=== PATIENT | female | born 1955 | race Caucasian/White ===

== ENCOUNTER 2020-11-28 10:36 | Emergency (ER) | payer OTHER ==
[~2020-11-28] VITALS: Ht 154.9 cm; Wt 79.4 kg
[2020-11-28] MEDS ORDERED: ACTOS15 MG PO (10:59)
[2020-11-28] MEDS ORDERED: CEPHALEXIN500 MG PO (12:09)
[2020-11-28] MEDS ORDERED: CENTANY30 GM TOP (12:09)
[2020-11-28] MEDS ORDERED: BACTRIM DS TAB1 EACH PO (12:09)
[2020-11-28 12:15] VITALS: BP 135/54
== END 2020-11-28 12:16 | disposition home or self-care (01) ==
LOC: M.ERS 10:36
DX: S91.332A Puncture wound without foreign body, left foot, initial encounter (principal); M79.672 Pain in left foot; E11.9 Type 2 diabetes mellitus without complications; E78.00 Pure hypercholesterolemia, unspecified; Z79.899 Other long term (current) drug therapy; Z88.1 Allergy status to other antibiotic agents; W22.8XXA Striking against or struck by other objects, initial encounter; Y93.89 Activity, other specified; Y92.89 Other specified places as the place of occurrence of the external cause; Y99.8 Other external cause status